=== PATIENT | female | born 1975 | race Hispanic/Latino ===

== ENCOUNTER 2018-11-08 13:55 | Observation (INO) ==
[2018-11-08] MEDS ORDERED: ASPIRIN PR ONE (14:05)
[2018-11-08] MEDS ORDERED: ASPIRIN PO ONE (14:05)
--- NOTE | 2018-11-08 14:14 | EKG Report ---
Test Performed on : 11/08/2018 2:05:13 PM Test Reason : CP Blood Pressure : / mmHG Vent. Rate : 091 BPM Atrial Rate : 091 BPM P-R Int : 136 ms QRS Dur : 078 ms QT Int : 362 ms P-R-T Axes : 060 008 025 degrees QTc Int : 445 ms Normal sinus rhythm. Possible Inferior infarct , age undetermined Cannot rule out Anterior infarct , age undetermined Abnormal ECG When compared with ECG of 25-JAN-2018 14:25, Minimal criteria for Anterior infarct are now present No significant change was found Unconfirmed Result
--- NOTE | 2018-11-08 14:33 | Diag Imaging Result Doc PS360 ---
EXAM: CHEST-2 VIEWS HISTORY: CP TECHNIQUE: Chest two views COMPARISON: 01/25/2018 FINDINGS: The lungs are well expanded. The heart is not enlarged. The vessels are not distended. There are no infiltrates. No pleural effusions. IMPRESSION: No acute abnormality. Electronically signed by Neal Hawkisn 11/08/2018 2:31 PM
[2018-11-08 14:36] LABS: BASO# 0.03 X1000 (0.0-0.2); BASO% 0.2 % (0.0-0.8); EOS# 0.05 X1000 (0.0-0.7); EOS% 0.4 % (0.0-10.0); HEMATOCRIT 42.4 % (37.0-47.0); HEMOGLOBIN 13.7 g/dL (12.0-16.0); IMM GRAN# 0.07 X1000 (0.0-0.04); IMM GRAN% 0.5 % (0.0-0.5); LYMPH# 4.21 X1000 (1.2-3.4); LYMPH% 30.7 % (20.5-51.1); MCH 24.6 PG (27-31); MCHC 32.3 g/dL (33-37); MONO# 0.62 X1000 (0.11-0.59); MONO% 4.5 % (1.7-9.3); MPV 9.5 FL (7.4-10.4); NEUT# 8.72 X1000 (1.4-6.5); NEUT% 63.7 % (42.2-75.2); PLT 489 X1000 (130-400); RBC 5.58 XMIL (4.2-5.4); RDW 14.6 % (11.5-14.5)
[2018-11-08 14:45] LABS: INR 0.93; PROTIME 13.3 Seconds (11.0-16.0); PTT 26.7 Seconds (22.3-41.8)
[2018-11-08 14:59] LABS: AGAP 15; ALB/GLOB RATIO 1.5; ALBUMIN 4.3 g/dL (3.5-5.0); ALKALINE PHOSPHATASE 105 U/L (32-104); BUN 16 mg/dL (8-22); CALCIUM 9.3 mg/dL (8.8-10.2); CHLORIDE 96 mmol/L (98-107); CK PROFILE 40 U/L (24-173); COSMO 282; CREATININE 0.7 mg/dL (0.5-0.9); ESTIMATED GFR > 60; GLUCOSE 329 mg/dL (70-104); GOT 17 U/L (10-30); GPT 20 U/L (10-36); POTASSIUM 4.3 mmol/L (3.5-5.1); SODIUM 134 mmol/L (136-145); TCO2 23 mmol/L (25-35); TOTAL BILIRUBIN 0.19 mg/dL (0.20-1.00); TOTAL PROTEIN 7.1 g/dL (6.3-8.3)
--- NOTE | 2018-11-08 16:52 | Diag Imaging Result Doc PS360 ---
EXAM: CT ANGIOGRM PULMONARY ARTERIES HISTORY: VELÁZQUEZ start after left knee surgery, chest pain x2 TECHNIQUE: Routine CT angiogram of IV contrast. 3-D postprocessing COMPARISON: None. FINDINGS: Appropriate pulmonary artery arterial contrast. No filling defects to suggest pulmonary emboli. No aortic aneurysm or dissection. No pericardial effusion. No effusion or focal consolidation. No pneumothorax. No parenchymal nodules or masses. There is hepatic steatosis. IMPRESSION: 1.No evidence for pulmonary embolism. 2.Hepatic steatosis. This exam was performed using automated exposure control, adjustment of mA or kV according to patient size, and/or use of iterative reconstruction technique. Electronically signed by Norma Israel 11/08/2018 4:50 PM
[2018-11-08] MEDS ORDERED: ZOFRAN IV PRN (18:05)
[2018-11-08] MEDS ORDERED: TYLENOL PO PRN (18:06)
[2018-11-08] MEDS ORDERED: NITROGLYCERIN SL PRN (18:07)
[2018-11-08] MEDS ORDERED: MORPHINE IV PRN (18:09)
--- NOTE | 2018-11-08 18:43 | PROVIDER DOCUMENTATION ---
This chart was entered by Jillian Hardin Scribe, acting as scribe for Jessica Garcia MD. HPI-General Adult - General Chief Complaint: Post Op Complaint Stated Complaint: CHEST PRESSURE,SOB,LT LEG PAIN Time Seen by Provider: 11/08/18 15:47 Source: patient, family Allergies/Adverse Reactions: Patient Allergies Allergy/AdvReac Type Severity Reaction Status Date / Time No Known Allergies Allergy Verified 11/08/18 16:12 Home Medications: Home Medication List Medication Instructions Recorded Confirmed Last Taken Type Metformin [Glucophage] 500 mg PO BID 01/20/17 11/08/18 11/08/18 History Ibuprofen [Motrin] 800 mg PO Q8H PRN PRN #20 tab 11/18/17 11/08/18 Unknown Rx Atorvastatin Calcium [Lipitor] 20 mg PO QHS 11/08/18 11/08/18 11/07/18 History Gabapentin [Neurontin] 300 mg PO TID 11/08/18 11/08/18 11/08/18 History Glimepiride [Amaryl] 2 mg PO DAILY 11/08/18 11/08/18 11/08/18 History Lisinopril [Prinivil] 5 mg PO DAILY 11/08/18 11/08/18 11/08/18 History Sitagliptin Phosphate [Januvia] 100 mg PO DAILY 11/08/18 11/08/18 11/08/18 History - History of Present Illness -Gen Adult Nature of Presenting Problems: 43 yohf presents to the ed with c/o chest pain diaphoresis and nausea in intermittent episodes that last approximately 5 minutes associated with SOB. pt sts has anxiety and keep her awake last night. pt had knee sx on 11/02/18 and post op looks to be healing well with no signs of infection. report VELÁZQUEZ after few steps started after the surgery. Hx of DM, HTN, HLP. Location of Pain/Injury: reports: chest Pain Radiation: reports: no radiation Quality of Pain: reports: pressure Severity: reports: mild Onset/Duration: reports: 24 hours ago Timing: reports: improving, intermittent Context/Activities at Onset: reports: light activity Modifying Factors: improves with: nothing Associated Symptoms: reports: chest pain, diaphoresis, nausea. denies: cough, diarrhea, fever/chills, shortness of breath, vomiting Similar Symptoms Previously?: No Recently seen or treated by another doctor?: No Review of Systems - Adult - REVIEW OF SYSTEMS - ADULT Constitutional: denies: chills, fever Eyes: denies: blurred vision, double vision Ears, Nose, Mouth & Throat: reports: no symptoms reported Cardiovascular: reports: see HPI, chest pain (substernal). denies: palpitations, syncope Respiratory: reports: shortness of breath. denies: cough, wheezing Gastrointestinal: reports: no symptoms reported Genitourinary: reports: no symptoms reported Musculoskeletal: reports: see HPI. denies: back pain, neck pain Integumentary: reports: see HPI, other (well healing post op of left knee with sutures in place) Neurological: reports: no symptoms reported Psychiatric: reports: no symptoms reported Endocrine: reports: other (DM) Allergic/Immunologic: reports: no symptoms reported Past History - Adult - PAST MEDICAL HISTORY-ADULT Review of Records: reports: Nursing Assessment Review, Medications Reviewed Major Childhood Illnesses: reports: denies history Cardiovascular: reports: HTN, hyperlipidemia Respiratory: reports: denies history Gastrointestinal: reports: denies history Obstetrical/Gynecological: reports: denies history Genitourinary: reports: denies history Musculoskeletal: reports: denies history Neurological: reports: denies history Endocrine/Immune: reports: Diabetes Diabetes Type: Type 2 Other Conditions: reports: denies history - PRIOR SURGERIES/PROCEDURES Surgical/Procedure History: reports: recent surgery (11/02/18), BTL, other (left ovary removed) - IMMUNIZATION STATUS Childhood Immunizations: See Nurse Assessment Flu Vaccine: See Nurse Assessment - FAMILY HISTORY Family History: reviewed, not pertinent - SOCIAL HISTORY Smoking: denies Substance Use: denies Living Situation: family Physical Exam-General - PHYSICAL EXAM-ADULT Initial Vital Signs Reviewed: Yes - CONSTITUTIONAL General Appearance: appears well, alert, no apparent distress - EYES Eyes: PERRL/EOMI, pink conjunctivae - HEAD, EARS, NOSE, MOUTH & THROAT HENMT: moist mucous membranes, normal ENT inspection - NECK Neck: non-tender, full range of motion, supple, normal inspection - RESPIRATORY Respiratory: chest non-tender, lungs clear, normal breath sounds - CARDIOVASCULAR Cardiovascular: normal peripheral pulses, regular rate, rhythm - GASTROINTESTINAL (ABDOMEN) Abdominal Exam: normal bowel sounds, non tender, soft - MUSCULOSKELETAL Extremity: no pedal edema, no calf tenderness, normal capillary refill, pelvis stable, other (has 2 SMALL sutures in left lower knee from sx 11/02/18) - SKIN Integumentary: normal color, normal turgor, warm/dry - NEUROLOGIC Neurologic: grossly normal, no motor/sensory deficits - PSYCHIATRIC Psych/Mental Status: normal mood/affect, normal thought content, normal thought process, oriented x 3 Progress - PLAN OF CARE/RESULTS Progress/Plan/Lab Results: Vital Signs - 8 hr 11/08/18 13:59 Temperature 98.0 F Pulse Rate 91 H Respiratory Rate 20 Blood Pressure 119/74 O2 Sat by Pulse Oximetry 98 Laboratory Results - last 24 hr 11/08/18 11/08/18 11/08/18 14:08 14:08 14:08 WBC 13.70 H RBC 5.58 H Hgb 13.7 Hct 42.4 MCV 76.0 L MCH 24.6 L MCHC 32.3 L RDW Std Deviation 14.6 H Plt Count 489 H MPV 9.5 Immature Gran % (Auto) 0.5 Neut % (Auto) 63.7 Lymph % (Auto) 30.7 Ashley % (Auto) 4.5 Eos % (Auto) 0.4 Baso % (Auto) 0.2 Immature Gran # (Auto) 0.07 H Neut # (Auto) 8.72 H Lymph # (Auto) 4.21 H Ashley # (Auto) 0.62 H Eos # (Auto) 0.05 Baso # (Auto) 0.03 PT INR PTT (Actin FS) Sodium 134 L Potassium 4.3 Chloride 96 L Carbon Dioxide 23 L Anion Gap 15 BUN 16 Creatinine 0.7 Estimated GFR/1.73 m2 > 60 BUN/Creatinine Ratio 23 Glucose 329 H Calculated Osmolality 282 Calcium 9.3 Total Bilirubin 0.19 L AST 17 ALT 20 Alkaline Phosphatase 105 H Creatine Kinase 40 Troponin T [id number] Pept < 5 L Total Protein 7.1 Albumin 4.3 Globulin 2.8 Albumin/Globulin Ratio 1.5 11/08/18 11/08/18 14:08 14:08 WBC RBC Hgb Hct MCV MCH MCHC RDW Std Deviation Plt Count MPV Immature Gran % (Auto) Neut % (Auto) Lymph % (Auto) Ashley % (Auto) Eos % (Auto) Baso % (Auto) Immature Gran # (Auto) Neut # (Auto) Lymph # (Auto) Ashley # (Auto) Eos # (Auto) Baso # (Auto) PT 13.3 INR 0.93 PTT (Actin FS) 26.7 Sodium Potassium Chloride Carbon Dioxide Anion Gap BUN Creatinine Estimated GFR/1.73 m2 BUN/Creatinine Ratio Glucose Calculated Osmolality Calcium Total Bilirubin AST ALT Alkaline Phosphatase Creatine Kinase Troponin T < 0.010 [id number]-Rsqpyllsybz Pept Total Protein Albumin Globulin Albumin/Globulin Ratio Orders Category Date Time Status Cardiac Monitoring DIRECTED Care 11/08/18 14:06 Active Oxygen Therapy- ED Nursing DIRECTED Care 11/08/18 14:06 Active Saline Loc NOW Care 11/08/18 14:06 Active CHEST-2 VIEWS [RAD] Stat Exams 11/08/18 14:06 Completed CBC WITH ELECTRONIC DIFF [HEME] Stat Lab 11/08/18 14:08 Completed CK PROFILE [SP CHEM] Stat Lab 11/08/18 14:08 Completed COMPREHENSIVE METABOLIC PANEL [CHEM] Stat Lab 11/08/18 14:08 Completed PRO B-NATRIURETIC PEPTIDE Stat Lab 11/08/18 14:08 Completed PROTIME WITH INR [COAG] Stat Lab 11/08/18 14:08 Completed PTT [COAG] Stat Lab 11/08/18 14:08 Completed TROPONIN T Stat Lab 11/08/18 14:08 Completed Aspirin Med 11/08/18 14:05 Discontinued 300 mg [place] NOW ONE Aspirin Med 11/08/18 14:05 Discontinued 325 mg PO NOW ONE CP/SOB/Palp >45 yrs of Age Stat Oth 11/08/18 14:05 Ordered EKG [EKG] Stat Ther 11/08/18 14:06 Draft RAISK FACTROS FOR CAD: HTN, DM, HLP. VELÁZQUEZ started after the surgery need to rule out PE, CTA thorax ordered. will admit for chest pain work up. Result Diagrams: 11/08/18 14:08 11/08/18 14:08 - REASSESSMENT Reassessment #1 Time Reassessed: 17:08 Status: unchanged (pt denies complaints.) - EKG 1 Time of EKG reading by physician:: 14:05 EKG Read and Signed by:: Jessica Garcia EKG Interpretation (*Must complete 3 of following elements*): Abnormal Rate: 91 Rhythm: nsr [place]: normal QRS: normal [place] Interval: normal ST Wave: normal Comments: possible inferiorinfarct, age undetermined - XRAY 1 XRAY: Bilateral XRAY Study: Chest Impression: See EMR Report (EXAM: CHEST-2 VIEWS HISTORY: CP TECHNIQUE: Chest two views COMPARISON: 01/25/2018 FINDINGS: The lungs are well expanded. The heart is not enlarged. The vessels are not distended. There are no infiltrates. No pleural effusions. IMPRESSION: No acute abnormality. Electronically signed by Neal Hawkins 11/08/2018 2:31 PM 11/08/18 1431 Interpreting Physician: Neal Hawkins MD Dictated Date/Time: 11/08/18 1430 cc: Brodie Hudson MD; None,PCP) - CT/MRI 1 CT Study: Angiogram Impression: See EMR Report (EXAM: CT ANGIOGRM PULMONARY ARTERIES HISTORY: VELÁZQUEZ start after left knee surgery, chest pain x2 TECHNIQUE: Routine CT angiogram of IV contrast. 3-D postprocessing COMPARISON: None. FINDINGS: Appropriate pulmonary artery arterial contrast. No filling defects to suggest pulmonary emboli. No aortic aneurysm or dissection. No pericardial effusion. No effusion or focal consolidation. No pneumothorax. No parenchymal nodules or masses. There is hepatic steatosis. IMPRESSION: 1.No evidence for pulmonary embolism. 2.Hepatic steatosis. This exam was performed using automated exposure contro l, adjustment of mA or kV according to patient size, and/or use of iterative reconstruction technique. Electronically signed by Norma Israel 11/08/2018 4:50 PM 11/08/18 1650 Interpreting Physician: Norma Israel MD Dictated Date/Time: 11/08/18 1645 cc: Jessica Garcia MD; None,PCP) - CONSULTS/PCP/HOSPITALIST Notification #1 *Consult/PCP/Hospitalist*: SAM Ferrara admitting for Dr. Alvarado Time Discussed: 17:41 Consult Disposition: Admit (Hx, PE and patient care disxcussed, accepted.) Departure - Departure Date of Disposition Decision: 11/08/18 Time of Disposition Decision: 17:41 DIAGNOSIS: Chest pain Qualifiers: Chest pain type: unspecified Qualified Code(s): R07.9 - Chest pain, unspecified Disposition: ADMITTED INPATIENT 09 Certified Medical Emergency: Emergent Condition: Stable Referrals and Follow-Ups: None,PCP [Primary Care Provider] - - Critical Care Note This patient required my direct & personal management of CC.: No Attestation - Physician/ CHRISTINA Attestation Patient care was provided by Advanced Practice Provider:: No The physician spent face to face time with patient:: Yes Advanced Practice Provider documentation review:: Supervising physician onsite and consulted in the evaluation and care of this patient. The physician did have a face to face encounter with the patient. This chart was documented by the indicated scribe, (Jillian Hardin Scribe) and accurately reflects the services I performed and decisions made by me, Jessica Glez MD, as attested by the provider's signature.
--- NOTE | 2018-11-08 20:36 | HISTORY AND PHYSICAL ---
CHIEF COMPLAINT: Chest pain since yesterday afternoon. HISTORY OF PRESENT ILLNESS: Ms. Wilkins is a 43-year-old female with a history of diabetes mellitus type 2, hypertension, hyperlipidemia, and recent left knee surgery, who presented to the ER with a chief complaint of chest pain that started yesterday afternoon around 3 p.m. The patient reports that she started experiencing chest pressure, shortness of breath, and palpitations yesterday afternoon. She states that the pain lasted for about 5 minutes and then returned last night, and it was associated with diaphoresis and palpitations at that time. The patient reports that she finally went to sleep, but then this morning she was having chest pain again. The patient states that she has never had chest pain before. She states that the pain usually lasts for a few minutes and then goes away; however, it returns. She denied having any nausea or vomiting associated with the chest pain. The patient reports that she has never had a stress test before, and she states that she does not have a primary care physician. PAST MEDICAL HISTORY: 1. Diabetes mellitus type 2. 2. Hypertension. 3. Dyslipidemia. PAST SURGICAL HISTORY: 1. Left knee surgery, on 11/02/2018. 2. Tubal ligation. 3. Left oophorectomy. FAMILY HISTORY: The patient's mother had diabetes and hypertension. The patient's father of pancreatic cancer. SOCIAL HISTORY: The patient lives at home with family. She denies any tobacco, alcohol, or illicit drug use. ALLERGIES: No known drug allergies. REVIEW OF SYSTEMS: A 12-point review of systems has been performed. Please refer to the History of Present Illness for pertinent positives and negatives. PHYSICAL EXAMINATION: VITAL SIGNS: Temperature 98.6 degrees, blood pressure 113/66, heart rate 77, respirations 18, O2 saturation 97% on room air. GENERAL: This is a middle-aged female lying in bed in no acute distress. HEAD: Normocephalic, atraumatic. SKIN: No rashes, no lesions. Normal capillary refill. HEART: S1, S2 normal. Regular rate and rhythm. LUNGS: Clear to auscultation bilaterally. No wheezing, no rales, no rhonchi. ABDOMEN: Positive bowel sounds. Soft, nontender, nondistended. EXTREMITIES: No edema, no cyanosis, no calf tenderness. NEUROLOGIC: The patient is alert and oriented x4. No focal neurologic deficits noted. Cranial nerves 2 through 12 intact. LABS: White blood cell count 13, hemoglobin 13, hematocrit 42, platelets 489,000. Sodium 134, potassium 4.3, chloride 96, CO2 23, BUN 16, creatinine 0.7, glucose 329. AST 17, ALT 20, alkaline phosphatase 105, albumin 4.3. IMAGING: Pulmonary arteriogram is negative for pulmonary embolism. ELECTROCARDIOGRAM: EKG shows normal sinus rhythm at 91 beats per minute. ASSESSMENT AND PLAN: 1. Chest pain. The patient was ruled out for pulmonary embolism. We will admit the patient and rule out myocardial infarction. We will order a stress test to be done tomorrow. We will also restart the patient's home medications. We will add aspirin to the patient's regimen and check a lipid profile in the morning. 2. Diabetes mellitus type 2. The patient is normally on metformin. We will hold this medication since the patient received intravenous contrast today. We will cover the patient with sliding scale insulin. 3. Hypertension. Continue on lisinopril. 4. Diabetic neuropathy. Continue on gabapentin. 5. Gastrointestinal prophylaxis. We will start the patient on Protonix. 6. Deep vein thrombosis prophylaxis. The patient has been started on Lovenox. cc: MD Kailash Peters MD
[2018-11-08] MEDS ORDERED: LIPITOR PO SCH (21:00)
[2018-11-08 21:02] LABS: URINE SOURCE CLEAN CATCH
[2018-11-08 21:07] LABS: BILIRUBIN URINE NEGATIVE (NEGATIVE); BLOOD URINE MODERATE (NEGATIVE); COLOR YELLOW; GLUCOSE URINE >1000 mg/dL (NEGATIVE); KETONE URINE TRACE mg/dL (NEGATIVE); LEUKOCYTES URINE NEGATIVE (NEGATIVE); NITRITE URINE NEGATIVE (NEGATIVE); PROTEIN URINE TRACE mg/dL (NEGATIVE); SP GRAVITY URINE 1.026; TURBIDITY URINE CLEAR (CLEAR); UR EPITHELIAL CELLS <10 /HPF (<10); URINE BACTERIA NEGATIVE /HPF; URINE RBC TNTC /HPF (<10); URINE WBC <10 /HPF (<10); UROBILINOGEN URINE NORMAL (NORMAL)
[2018-11-08] MEDS: HUMULIN R SUBQ SCH (23:05)
[2018-11-09] MEDS: HUMULIN R SUBQ SCH ×2 (06:24→12:04)
[2018-11-09] MEDS ORDERED: PROTONIX PO SCH (07:00)
--- NOTE | 2018-11-09 07:16 | EKG Report ---
Test Performed on : 11/09/2018 06:43:25 AM Test Reason : chest pain Blood Pressure : / mmHG Vent. Rate : 068 BPM Atrial Rate : 068 BPM P-R Int : 146 ms QRS Dur : 080 ms QT Int : 430 ms P-R-T Axes : 045 024 030 degrees QTc Int : 457 ms Normal sinus rhythm. Normal ECG When compared with ECG of 08-NOV-2018 14:05, (Unconfirmed) Borderline criteria for Inferior infarct are no longer present Confirmed by Ottoniel HUMMEL, Ang Zee ([id number]) on 11/09/2018 10:57:28 AM
[2018-11-09] MEDS ORDERED: LEXISCAN ONE (08:18)
[2018-11-09] MEDS ORDERED: PRINIVIL PO SCH (09:00)
[2018-11-09] MEDS ORDERED: ASPIRIN EC PO SCH (09:00)
[2018-11-09] MEDS ORDERED: JANUVIA PO SCH (09:00)
[2018-11-09] MEDS ORDERED: NEURONTIN PO SCH (09:00)
[2018-11-09] MEDS ORDERED: LOVENOX SUBQ SCH (09:00)
[2018-11-09 10:31] LABS: HEMATOCRIT 41.1 % (37.0-47.0); HEMOGLOBIN 13.2 g/dL (12.0-16.0); MCH 24.9 PG (27-31); MCHC 32.1 g/dL (33-37); MCV 77.5 FL (81-99); MPV 9.2 FL (7.4-10.4); RBC 5.3 XMIL (4.2-5.4); RDW 14.6 % (11.5-14.5); WBC 11.86 X1000 (4.8-10.8)
[2018-11-09 10:56] LABS: AGAP 13; BUN 17 mg/dL (8-22); CALCIUM 9.1 mg/dL (8.8-10.2); CHLORIDE 97 mmol/L (98-107); CK PROFILE 30 U/L (24-173); COSMO 286; CREATININE 0.6 mg/dL (0.5-0.9); ESTIMATED GFR > 60; GLUCOSE 319 mg/dL (70-104); SODIUM 136 mmol/L (136-145); TCO2 26 mmol/L (25-35)
[2018-11-09 10:57] LABS: CHOLESTEROL 131 mg/dL (0-200); HDL 41 mg/dL (45-65); LDL 59 mg/dL; TRIGLYCERIDES 155 mg/dL (35-135); VLDL 31 mg/dL
[2018-11-09 11:51] VITALS: BP 116/64
--- NOTE | 2018-11-09 13:53 | Diag Imaging Result Document ---
PROCEDURE NAME: MYOCARDIAL PERF SCAN, STR/REST - 11/09/2018 SUMMARY: The patient was administered 10.2 mCi of technetium-99m sestamibi, after which resting cardiac images were obtained. The patient was subsequently administered Lexiscan 0.4 mg intravenous, after which the heart rate went from 75 beats per minute to 121 beats per minute. The blood pressure went from 130/82 to 129/77. With Lexiscan, the patient denied chest discomfort. Following the administration of Lexiscan, the patient was administered 30.5 mCi of technetium 99-m sestamibi after which gated stress cardiac images were obtained. Baseline ECG demonstrated normal sinus rhythm. With Lexiscan, there were no diagnostic ST-segment changes. SPECT images were reconstructed in the short, horizontal, vertical long axis. Review of these images demonstrated homogeneous uptake of radiopharmaceutical on both stress and resting images. Gated images demonstrated a calculated left ejection fraction of 81% with symmetrical wall motion/thickening. CONCLUSIONS: 1. Adequate response to Lexiscan. 2. Clinically negative for chest pain. 3. Electrocardiographically negative for Lexiscan induced myocardial ischemia. 4. Normal Lexiscan sestamibi images. cc: MD Lani Saeed MD
--- NOTE | 2018-11-09 18:48 | CONSULTATION ---
DATE OF CONSULTATION: 11/09/2018 IMPRESSION: 1. Episodic chest discomfort with features predominantly atypical for myocardial ischemia. 2. Type 2 diabetes mellitus. 3. Hypertension. 4. Hyperlipidemia. RECOMMENDATIONS: Agree with plans for Lexiscan myocardial perfusion study. HISTORY: This 43-year-old female with past history of type 2 diabetes mellitus, hypertension and hyperlipidemia presented to the emergency room with complaint of episodes of left chest pressure. She is status post recent left knee arthroscopic procedure a week ago. She describes spontaneous episodes of left chest pressure that might last 5 minutes and then resolved spontaneously. She denies any other associated symptoms. Symptoms are nonexertional and do not seem to be related to diet. PAST MEDICAL HISTORY: 1. Type 2 diabetes mellitus. 2. Hypertension. 3. Hyperlipidemia. PAST SURGICAL HISTORY: Includes left knee arthroscopic procedure, tubal ligation, and left oophorectomy. ALLERGIES: She has no known drug allergies. MEDICATIONS PRIOR TO ADMISSION: As listed. SOCIAL HISTORY: The patient lives at home with family. She does not smoke or use alcohol. FAMILY HISTORY: Negative for premature coronary artery disease. REVIEW OF SYSTEMS: Pulmonary: Negative. Gastrointestinal: Noncontributory. Constitutional: Noncontributory. Remainder of review of systems negative/noncontributory with 14 total systems reviewed. PHYSICAL EXAMINATION: General: She is a pleasant adult female in no distress. Vital signs: Blood pressure 130/68, heart rate 72, oxygen saturation 100% on room air. HEENT: Extraocular muscles appear intact. Mucous membranes are moist. Neck: Supple without jugular venous distention. There are no carotid bruits. Chest: Clear to auscultation bilaterally. Cardiac Exam: Reveals a regular rate and rhythm without appreciable murmur or gallop. Abdomen: Soft. Bowel sounds are normal. Extremities: Without edema. Neurologic exam: Reveals her to be alert and fully oriented. Speech is fluent. She moves all 4 extremities equally well. Skin Warm and dry. Psychiatric: Exam reveals her mood to be appropriate. DIAGNOSTIC DATA: Twelve-lead EKG demonstrates normal sinus rhythm and low voltage QRS in precordial leads. Mild delay in precordial R-wave progression is demonstrated. LABORATORY DATA: Includes a white blood cell count of 11.86, hematocrit 41.1, hemoglobin 13.2, platelet count 443,000. Sodium 136, potassium 4.0, chloride 97, carbon dioxide 26, BUN 17, creatinine 0.6, glucose 319, initial troponin less than 0.01. Followup troponin less than 0.01. cc: MD Lani Saeed MD
--- NOTE | 2018-11-12 10:47 | DISCHARGE SUMMARY ---
ADMISSION DATE: 11/08/2018 DISCHARGE DATE: 11/09/2018 FINAL DISCHARGE DIAGNOSES: 1. Atypical chest pain. 2. Hypertension. 3. Diabetes mellitus type 2. 4. Hyperlipidemia. CONSULTATIONS REQUESTED DURING THIS HOSPITAL STAY: Cardiology consultation with Dr. Sanders. IMAGIN. A myocardial perfusion scan that was noted to be normal. 2. Pulmonary arteriogram which revealed no evidence of pulmonary embolism. HOSPITAL COURSE: Ms. Wilkins is a 43-year-old female with a history of hypertension, diabetes and hyperlipidemia who presented to the ER with chest pain. On admission, troponin and cardiac profile were performed which were noted to be negative. Also, the patient's EKG showed no abnormality. The patient was admitted to rule out IN. A myocardial perfusion scan was performed the following day that was noted to be normal. After further questioning, the patient stated that she was no longer having chest pain. The patient was ultimately cleared for discharge home with instructions to follow up with her primary care physician in 1 to 2 weeks. DISCHARGE MEDICATIONS: 1. Lipitor 20 mg p.o. at bedtime. 2. Neurontin 300 mg p.o. 3 times a day. 3. Amaryl 2 mg oral daily. 4. Lisinopril 5 mg oral daily. 5. Metformin 500 mg oral twice a day. 6. Januvia 100 mg p.o. daily. DISCHARGE DIET: 1800 ADA diet low-sodium diet. ACTIVITY: As tolerated. FOLLOWUP INSTRUCTIONS: The patient has been advised to follow up with her primary care physician in 1 to 2 weeks. cc: Lani Alvarado MD
== END 2018-11-09 16:25 | disposition home or self-care (01) ==
LOC: ED 13:55 → SUATTDRO 20:11 → 3N 20:11 → INTOOBSV 20:11
PROVIDERS: ADMIT Internal Medicine; ATTEND Internal Medicine
CPT/HCPCS: 71020; 71046; 71275; 78452; 80048; 80053; 80061; 81001; 81025; 82550; 82948; 83880; 84484; 85025; 85027; 85610; 85730; 93005; 93010; 93017; 99285; A9270; A9500; J1650; J2405; J2785; Q9967; XXXXX